=== PATIENT | female | born 1980 | race Caucasian/White ===

== ENCOUNTER 2019-02-23 23:30 | Emergency (ER) | payer SELFPAY ==
[~2019-02-23] VITALS: Ht 152.4 cm; Wt 72.6 kg
[2019-02-23 23:45] VITALS: BP 123/79
--- NOTE | 2019-02-24 00:04 | ED.ADGEN ---
Past History Past Medical History: Asthma, Other Past Surgical History: Alcohol Use: Rarely Drug Use: None Adult General Chief Complaint Chief Complaint Shortness of air, wheezing HPI HPI Patient is a 38-year-old female with history of asthma who presents with nonproductive cough, shortness of breath, wheezing or with left-sided chest pain. Symptoms began 2 days ago with gradual progression.. No reported fever, patient does report fatigue and body aches and chills. Patient has used inhaler, nebulizer today without relief of symptoms. Reports chest tightness. Breathing is worse at night. Patient is on a stay of her menstrual period. Currently taking contraceptive pill[] Review of Systems Review of Systems Review symptoms as per history of present illness. All other review symptoms are negative. All other systems were reviewed and found to be within normal limits, except as documented in this note. Current Medications Current Medications Current Medications Medications (Trade) Dose Ordered Sig/Moe Start Time Stop Time Status Last Admin Dose Admin Albuterol/ Ipratropium (Duoneb) 3 ml 1X ONCE 02/24/19 00:15 02/24/19 00:16 DC 02/24/19 00:15 3 ML Doxycycline Hyclate (Vibra-Tab) 100 mg 1X ONCE 02/24/19 00:15 02/24/19 00:16 UNV Prednisone (Prednisone) 60 mg 1X ONCE 02/24/19 00:15 02/24/19 00:16 DC 02/24/19 00:11 60 MG Allergies Allergies Allergies Coded Allergies Type Severity Reaction Last Updated Verified No Known Drug Allergies 02/23/19 No Physical Exam Physical Exam Constitutional: Well developed, well nourished, no acute distress, non-toxic appearance. [] HENT: Normocephalic, atraumatic, bilateral external ears normal, oropharynx moist, no oral exudates, nose normal. [] Eyes: PERRLA, EOMI, conjunctiva normal, no discharge. [] Neck: Normal range of motion, no tenderness, supple, no stridor. [] Cardiovascular:Heart rate regular rhythm, no murmur, negative Homans signs. [] Lungs & Thorax: Abrasions nonlabored, coarse rales in left upper left lower lung krishna.[] Abdomen: Bowel sounds normal, soft, no tenderness, no masses. [] Skin: Warm, dry, no erythema, no rash. [] Back: No tenderness, no CVA tenderness. [] Extremities: No tenderness. [] Neurologic: Alert and oriented X 3, normal motor function, normal sensory function, no focal deficits noted. [] Psychologic: Affect normal, judgement normal, mood normal. [] Current Patient Data Vital Signs Vital Signs Date Time Temp Pulse Resp B/P (MAP) Pulse Ox O2 Delivery O2 Flow Rate FiO2 02/23/19 23:45 98.8 101 20 99 Room Air EKG EKG [] Radiology/Procedures Radiology/Procedures [Chest x-ray: Perihilar infiltrate] Course & Med Decision Making Course & Med Decision Making Pertinent Labs and Imaging studies reviewed. (See chart for details) [Symptoms consistent with bronchial pneumonia with mild intermittent asthma exacerbation. Breathing treatment, steroids first dose of antibiotics given in the emergency department. We'll continue supportive treatment with PCP follow- up. Return precautions reviewed.] Final Impression Final Impression [#1 bronchial pneumonia #2 asthma exacerbation] Dragon Disclaimer Dragon Disclaimer This electronic medical record was generated, in whole or in part, using a voice recognition dictation system. RACHEL CARPIO DO February 24, 2019 00:04
[2019-02-24] MEDS ORDERED: DOXY100C2 PO (00:07)
[2019-02-24] MEDS ORDERED: PRED50TA PO (00:07)
[2019-02-24] MEDS ORDERED: predniSONE 20 MG TABLET PO ONE (00:15)
[2019-02-24] MEDS ORDERED: IPRATRPIUM/ALBUTEROL 0.5/2.5MG 3 ML NEBU. NEB ONE (00:15)
[2019-02-24] MEDS ORDERED: DOXYCYCLINE HYCLATE 100 MG TABLET PO ONE (00:15)
[2019-02-24] MEDS ORDERED: DOXYCYCLINE HYCLATE 100 MG TABLET ONE (00:43)
[2019-02-24] MEDS ORDERED: ALBU0.63 NEB (00:47)
--- NOTE | 2019-02-24 01:19 | RAD ---
CHEST PA LATERAL CLINICAL INDICATION: Shortness of breath, chills, cough. COMPARISON: None FINDINGS: Heart is normal in size. Central bilateral peribronchial wall thickening seen. Diffuse interstitial opacities. No focal consolidation. No pneumothorax or pleural effusion. Visualized bony thorax within normal limits. IMPRESSION: Bronchitis. Electronically signed by: Parviz Paniagua DO (02/24/2019 1:16 AM) [facility]
== END 2019-02-24 00:48 | disposition home or self-care (01) ==
LOC: ER 23:30
DX: J18.0 Bronchopneumonia, unspecified organism (principal); J45.21 Mild intermittent asthma with (acute) exacerbation
CPT/HCPCS: 71046; 81025; 94640; 99284; J7512; J7620

== ENCOUNTER 2021-11-19 08:03 | Emergency (ER) | payer BC ==
[~2021-11-19] VITALS: Ht 152.4 cm; Wt 68.2 kg
[~2021-11-19 08:03] MED LIST: ALBU0.63 NEB; DOXY100C3 PO; PRED50TA PO
--- NOTE | 2021-11-19 08:29 | PHYS DOC ---
Past History Past Medical History: Asthma, Other Past Surgical History: Alcohol Use: Rarely Drug Use: None Adult General HPI HPI Patient is a 41yo f presenting via POC for shortness of breath. Reports she has history of asthma and utilizes Qvar inhaler daily with intermittent use of ProAir. States she has been at baseline health and fully vaccinated against COVID-19 with booster but admits recent positive COVID-19 exposure, her daughter within the past 7 days. States that she recently found out that her daughter tested positive for Covid and after having upper respiratory symptoms and development of worsening cough, she presented this morning for evaluation. Denies any fevers, no sputum production, no other noteworthy comorbid conditions Review of Systems Review of Systems Fourteen body systems of review of systems have been reviewed. See HPI for pertinent positives and negative responses, other carney all other systems are negative, non-pertinent or non-contributory Allergies Allergies Allergies Coded Allergies Type Severity Reaction Last Updated Verified No Known Drug Allergies 02/23/19 No Physical Exam Physical Exam Constitutional: Well developed, well nourished, no acute distress, non-toxic appearance. HENT: Normocephalic, atraumatic, bilateral external ears normal, oropharynx moist, no oral exudates, nose normal. Nasal congestion. Nasal mucosa boggy with postnasal drip present Eyes: PERRLA, EOMI, conjunctiva normal, no discharge. Neck: Normal range of motion, no tenderness, supple, no stridor. Cardiovascular: Heart rate regular, sinus rhythm, no murmurs rubs or gallops Lungs & Thorax: Ambulatory, oxygenating and ventilating fine without increased work of breathing or accessory muscle use, bibasilar crackles present Abdomen: Bowel sounds normal, soft, no tenderness, no masses, no pulsatile masses. Nonsurgical abdomen, no peritoneal signs Skin: Warm, dry, no erythema, no rash. Back: No tenderness, no CVA tenderness. Extremities: No tenderness, no cyanosis, no clubbing, ROM intact, no edema. Neurologic: Alert and oriented X 3, grossly normal motor & sensory function, no focal deficits noted. Psychologic: Affect normal, judgement normal, mood normal. Current Patient Data Vital Signs Vital Signs Date Time Temp Pulse Resp B/P (MAP) Pulse Ox O2 Delivery O2 Flow Rate FiO2 11/19/21 08:39 98.2 90 20 111/71 (84) 97 Room Air Vital Signs Date Time Temp Pulse Resp B/P (MAP) Pulse Ox O2 Delivery O2 Flow Rate FiO2 11/19/21 08:39 98.2 90 20 111/71 (84) 97 Room Air Lab Results Current Medications Medications (Trade) Dose Ordered Sig/Moe Route PRN Reason Start Time Stop Time Status Last Admin Dose Admin Prednisone (Prednisone) 60 mg 1X ONCE PO 11/19/21 08:45 11/19/21 09:17 DC 11/19/21 09:08 EKG EKG [] Radiology/Procedures Radiology/Procedures Single Views of the Chest 11/19/2021 8:45 AM Indication: cough Comparison: None Findings: There is no focal consolidation or infiltrate identified. There is no effusion or pneumothorax. The cardiomediastinal silhouette and pulmonary vasculature are within normal limits. No osseous abnormality is identified. Impression: No evidence of acute cardiopulmonary process. Heart Score C/O Chest Pain: No Risk Factors: Risk Factors: DM, Current or recent (<one month) smoker, HTN, HLP, family history of CAD, obesity. Risk Scores: Risk Factors: DM, Current or recent (<one month) smoker, HTN, HLP, family history of CAD, obesity. Course & Med Decision Making Course & Med Decision Making ABCs unremarkable HPI physical exam and comprehensive ER work-up nonconcerning for any emergent or surgical issues Joint decision to test for COVID-19 via PCR in a high risk individual with known exposure, patient suffering nonsevere asthma exacerbation. Joint decision to start short-term steroid burst with close PCP follow-up when safe to do so Dragon Disclaimer Dragon Disclaimer This electronic medical record was generated, in whole or in part, using a voice recognition dictation system. Departure Departure: Impression: Primary Impression: Asthma Additional Impression: Person under investigation for COVID-19 Disposition: HOME / SELF CARE / HOMELESS Condition: STABLE Referrals: [facility] (PCP) Additional Instructions: You were seen for headache, fever, body aches, and possible infection with COVID-19. Your physical exam was reassuring. Your chest x-ray was normal. We tested you for COVID-19 but this test does not come back for 1-4 hours. In the meantime you need to quarantine yourself at home away from all other individuals, especially those who are elderly or have any other chronic health issues or an immunocompromised status. Alternate Tylenol and ibuprofen as needed for body aches and pain. If your test does come back positive you need to quarantine yourself for 5 days until symptom-free for most up-to-date CDC recommendations. You have been prescribed prednisone and steroids which she should take as scheduled to completion. You should make sure to drink plenty of fluids and get plenty of rest. You should return to the ED if you develop worsening cough, shortness of breath, chest pain, or any other new or concerning symptoms. Scripts Prednisone (PREDNISONE) 20 Mg Tablet 40 MG PO DAILY for asthma for 4 Days, #8 TAB Prov: KIZZY SORTO DO 11/19/21 Problem Qualifiers KIZZY SORTO DO Nov 19, 2021 08:29
[2021-11-19] MEDS ORDERED: predniSONE 20 MG TABLET PO ONE (08:45)
--- NOTE | 2021-11-19 09:09 | RAD ---
Single Views of the Chest 11/19/2021 8:45 AM Indication: cough Comparison: None Findings: There is no focal consolidation or infiltrate identified. There is no effusion or pneumothorax. The cardiomediastinal silhouette and pulmonary vasculature are within normal limits. No osseous abnormality is identified. Impression: No evidence of acute cardiopulmonary process.
[2021-11-19 09:27] VITALS: BP 104/76
[2021-11-19] MEDS ORDERED: PRED20TA PO (09:33)
[2021-11-19 10:36] LABS: INFLUENZA A PATIENT NEGATIVE (NEGATIVE); INFLUENZA B PATIENT NEGATIVE (NEGATIVE)
== END 2021-11-19 10:03 | disposition home or self-care (01) ==
LOC: ER 08:03
DX: J45.909 Unspecified asthma, uncomplicated (principal); Z20.822 Contact with and (suspected) exposure to COVID-19
CPT/HCPCS: 71045; 87428; 99284; J7512